=== PATIENT | male | born 1980 | race Caucasian/White ===

== ENCOUNTER 2024-05-19 13:04 | Oncology outpatient (recurring) (ONCR) | payer OTHER, SELFPAY ==
[2024-05-19] MEDS: rabies vaccine 2.5 unit SDV IM (13:43)
== END 2024-05-28 23:59 | disposition home or self-care (01) ==
PROVIDERS: Visit Provider Emergency Medicine
DX: Z20.3 Contact with and (suspected) exposure to rabies (principal); Z23 Encounter for immunization
CPT/HCPCS: 90471; 90675